=== PATIENT | female | born 1950 | race Caucasian/White ===

== ENCOUNTER 2017-02-06 16:01 | Emergency (ER) | payer MEDICARE, BC ==
[2017-02-06 16:19] VITALS: BP 137/64
--- NOTE | 2017-02-06 17:50 | UC ---
Minor Trauma HPI - HPI Summary HPI Summary: PT MISSED A STEP WHEN GOING UP THE STEPS TO HER [employer] TODAY. FELL FORWARD AND STRUCK HER UPPER LIP ON ONE STEP AND HER FOREHEAD ON THE NEXT STEP. ABRADED BOTH KNEES. NO LOC. DENIES RING, DIZZINESS OR VISUAL DISTURBANCES. HER UPPER INCISORS FEEL ACHY. - History of Current Complaint Chief Complaint: UCTrauma Stated Complaint: FALL/ HEAD INJURY Time Seen by Provider: 02/06/17 17:38 Hx Obtained From: Patient Onset/Duration: Sudden Onset, Lasting Hours, Still Present Onset Of Pain: Immediate Severity Initially: Mild Severity Currently: Mild Pain Intensity: 3 Pain Scale Used: 0-10 Numeric Mechanism Of Injury: Fall From A Standing Position Aggravating Factor(s): Nothing Alleviating Factor(s): Nothing Associated Signs And Symptoms: Negative: Loss Of Consciousness - Allergies/Home Medications Allergies/Adverse Reactions: Allergies Allergy/AdvReac Type Severity Reaction Status Date / Time Penicillins [PCN] Allergy Unknown Verified 02/06/17 16:19 Reaction Details Sulfa Drugs Allergy Unknown Verified 02/06/17 16:19 Reaction Details Home Medications: Home Medications Areds 2 02/06/17 [History] [id number]-Myg C- [Glucosamine Chondroitin] 02/06/17 [History] PMH/Surg Hx/FS Hx/Imm Hx Cardiovascular History: Hypertension Respiratory History: Asthma - Surgical History Surgical History: None Surgery Procedure, Year, and Place: cyst removed from eye 1952;. adenoidectomy 1958. ;hernia repair 1969;. ovarian cyst removal;. d&c x3. Back - Family History Known Family History: Positive: Hypertension - Social History Alcohol Use: None Substance Use Type: None Smoking Status (MU): Never Smoked Tobacco Review of Systems Constitutional: Negative Skin: Other - ABRASIONS Respiratory: Negative Cardiovascular: Negative Gastrointestinal: Negative Neurological: Negative All Other Systems Reviewed And Are Negative: Yes Physical Exam Triage Information Reviewed: Yes Appearance: Well-Appearing, No Pain Distress, Well-Nourished Vital Signs: Initial Vital Signs Temp 98.0 F 02/06/17 16:15 Pulse 82 02/06/17 16:15 Resp 18 02/06/17 16:15 BP 137/64 02/06/17 16:15 Pulse Ox 98 02/06/17 16:15 Vital Signs Reviewed: Yes Eyes: Positive: Conjunctiva Clear ENT: Positive: Hearing grossly normal, Pharynx normal, TMs normal Dental: Positive: Other: - NO LOOSE TEETH APPRECIATED. SLIGHTLY TENDER OVER UPPER FRONTAL ALVEOLAR PLATE Neck: Positive: Supple Respiratory: Positive: No respiratory distress, No accessory muscle use Cardiovascular: Positive: Pulses Normal Abdomen Description: Positive: Soft Musculoskeletal: Positive: ROM Intact, No Edema, Other: - NO TENDERNESS OVER KNEES OR PERIORBITALLY Neurological: Positive: Alert, Other: - CN II-XII GROSSLY INTACT BILATERALLY. NEG PRONATOR DRIFT. FINGER TO NOSE INTACT BILATERALLY. HEEL TO WARE INTACT BILATERALLY. RAPID ALTERNATING MVMTS INTACT. 5/5 STRENGTH Psychological: Positive: Age Appropriate Behavior Skin: Positive: Other - SPFL ABRASIONS OVER RIGHT EYE, BILATERALY KNEES AND UPPER LIP. Negative: rashes Minor Trauma Course/Dx - Differential Dx/Diagnosis Provider Diagnoses: 1. FACIAL CONTUSION/ABRASIONS. 2. TDAP BOOSTER Discharge - Discharge Plan Condition: Stable Disposition: HOME Patient Education Materials: Acute Dental Trauma (ED), Abrasion (ED), Facial Contusion (ED) Referrals: Coleman Bello MD [Primary Care Provider] - If Needed Additional Instructions: YOUR INJURIES ALL APPEAR SUPERFICIAL AND SHOULD HEAL WITHOUT ANY PROBLEMS. BE VIGILANT FOR SIGNS OF INFECTION AND SEEK FOLLOW-UP IF YOU DEVELOP SPREADING REDNESS OF THE SKIN, PURULENT DRAINAGE, FEVER, INCREASED PAIN OR ANY OTHER CONCERNING SYMPTOMS. FOLLOW-UP WITH YOUR DENTIST TO ENSURE NO DAMAGE TO YOUR TEETH OR THE ADJACENT BONE. GO TO THE ER WITHOUT FAIL IF YOU DEVELOP UNEQUAL PUPILS, VISUAL DISTURBANCE, GAIT INSTABILITY, SPEECH DIFFICULTY, NAUSEA/VOMITING, WORSENING HEADACHE, DIZZINESS, CONFUSION, WEAKNESS OR ANY OTHER CONCERNING SYMPTOMS. TETANUS IMMUNIZATION GIVEN (TDAP): You have been given an immunization against tetanus. Please record this in your records. In general, a booster is needed only once every 10 years. The tetanus shot protects against tetanus or "lockjaw," which is a complication of certain wound infections (the tetanus shot cannot protect against the actual infection). The immunization site may become warm and red due to local reaction. If this occurs, apply warm compresses and take aspirin or ibuprofen to reduce inflammation and discomfort. Return for evaluation if the reaction becomes severe.
[2017-02-06] MEDS ORDERED: Tetan/Diph/Pertus SYR(Tdap)* 0.5 ML SYR(BOOSTRIX) use SYR IM ONE (18:04)
== END 2017-02-06 18:29 | disposition home or self-care (01) ==
LOC: UCEAST 16:01
DX: S00.83XA Contusion of other part of head, initial encounter (principal); S00.81XA Abrasion of other part of head, initial encounter; Z23 Encounter for immunization; W10.9XXA Fall (on) (from) unspecified stairs and steps, initial encounter; I10 Essential (primary) hypertension; J45.909 Unspecified asthma, uncomplicated; Z88.0 Allergy status to penicillin; Z88.2 Allergy status to sulfonamides
CPT/HCPCS: 90715; 96372; 99212; G0463

== ENCOUNTER 2018-02-13 15:07 | Emergency (ER) | payer MEDICARE, OTHER ==
[2018-02-13 15:34] VITALS: BP 132/74
[2018-02-13] MEDS ORDERED: Rabies VIRUS VACCINE (Imovax)* 2.5 UNIT/ML 1 ML IM ONE (15:36)
--- NOTE | 2018-02-13 15:43 | UC ---
UC General HPI - HPI Summary HPI Summary: Patient complains of exposure to bat in her house over the course of 2 days. Bat was seen in the living room while they were awake. Patient slept at night in bed room with the door closed. Bat was later found in the living room and captured. Health department was contacted and declined to test bat, and stated the patient did not meet criteria for rabies exposure. Patient here at her own expense for rabies vaccination. Denies any knowledge of injury or wound, or any other symptoms. - History of Current Complaint Chief Complaint: UCGeneralIllness Stated Complaint: POSS BAT EXOSURE Time Seen by Provider: 02/13/18 15:33 Hx Obtained From: Patient Current Severity: None Pain Intensity: 0 - Allergy/Home Medications Allergies/Adverse Reactions: Allergies Allergy/AdvReac Type Severity Reaction Status Date / Time Penicillins Allergy Rash Verified 02/13/18 15:33 Sulfa (Sulfonamide Allergy Rash Verified 02/13/18 15:33 Antibiotics) Home Medications: Home Medications Ranitidine TAB (NF) [Zantac TAB (NF)] 150 mg PO BID 02/13/18 [History Confirmed 02/13/18] PMH/Surg Hx/FS Hx/Imm Hx Previously Healthy: Yes - Surgical History Surgical History: Yes Surgery Procedure, Year, and Place: cyst removed from eye 1952;. adenoidectomy 1958. ;hernia repair 1969;. ovarian cyst removal;. d&c x3. L3-5 LAMINECTOMY. L3- - Family History Known Family History: Positive: Hypertension - Social History Alcohol Use: None Substance Use Type: None Smoking Status (MU): Never Smoked Tobacco Have You Smoked in the Last Year: No Review of Systems Constitutional: Negative Skin: Negative Eyes: Negative ENT: Negative Respiratory: Negative Cardiovascular: Negative Gastrointestinal: Negative Genitourinary: Negative Motor: Negative Neurovascular: Negative Musculoskeletal: Negative Neurological: Negative Psychological: Negative Is Patient Immunocompromised?: No All Other Systems Reviewed And Are Negative: Yes Physical Exam Triage Information Reviewed: Yes Appearance: Well-Appearing Vital Signs: Initial Vital Signs Temp 96.2 F 02/13/18 15:24 Pulse 91 02/13/18 15:24 Resp 16 02/13/18 15:24 BP 132/74 02/13/18 15:24 Pulse Ox 96 02/13/18 15:24 Vital Signs Reviewed: Yes Eye Exam: Normal Neck exam: Normal Respiratory Exam: Normal Cardiovascular Exam: Normal Abdominal Exam: Normal Musculoskeletal Exam: Normal Neurological Exam: Normal Psychological Exam: Normal Skin Exam: Normal Course/Dx - Course Course Of Treatment: Patient complains of exposure to bat in her house over the course of 2 days. Bat was seen in the living room while they were awake. Patient slept at night in bed room with the door closed. Bat was later found in the living room and captured. Health department was contacted and declined to test bat, and stated the patient did not meet criteria for rabies exposure. Patient here at her own expense for rabies vaccination. Denies any knowledge of injury or wound, or any other symptoms. The 0 for rabies vaccination given here in the urgent care. Follow-up Tuesday second vaccination per health department instructions. See nurse's note - Differential Dx - Multi-Symptom Provider Diagnoses: bat exposure Discharge - Sign-Out/Discharge Documenting (check all that apply): Patient Departure - Discharge Plan Condition: Stable Disposition: HOME Patient Education Materials: Rabies Vaccine (By injection), Rabies (ED) Referrals: Jayy Driver MD [Primary Care Provider] - Additional Instructions: Follow-up on day 3 for second shot of vaccine. - Billing Disposition and Condition Condition: STABLE Disposition: Home
== END 2018-02-13 15:50 | disposition home or self-care (01) ==
LOC: UCEAST 15:07
DX: Z20.3 Contact with and (suspected) exposure to rabies (principal); Z23 Encounter for immunization; Z88.0 Allergy status to penicillin; Z88.2 Allergy status to sulfonamides
CPT/HCPCS: 90471; 99212; G0463

== ENCOUNTER 2018-02-16 14:17 | Emergency (ER) | payer MEDICARE, OTHER ==
[2018-02-16] MEDS ORDERED: Rabies VIRUS VACCINE (Imovax)* 2.5 UNIT/ML 1 ML IM ONE (14:24)
--- NOTE | 2018-02-16 14:27 | UC ---
General HPI - HPI Summary HPI Summary: 67 y/o female presents to Urgent Care requesting 2nd rabies booster. Bat found in house on 02/04/18. pt is afraid she was bit but is not sure. Bat was caught in the living room. Health center called but did not test the bat because they did not feel she met exposure criteria. Pt seen at Urgent Care 02/13/18 for first shot. This is scribe Ed Zoraida documenting for attending Dr. Shawn Milner. I, Dr. Martinez, personally performed the services described in this documentation as scribed in my presence and it is both accurate and complete. - History of Current Complaint Stated Complaint: RABIES BOOSTER Time Seen by Provider: 02/16/18 14:20 Hx Obtained From: Patient - Allergy/Home Medications Allergies/Adverse Reactions: Allergies Allergy/AdvReac Type Severity Reaction Status Date / Time Penicillins Allergy Rash Verified 02/16/18 14:27 Sulfa (Sulfonamide Allergy Rash Verified 02/16/18 14:27 Antibiotics) PMH/Surg Hx/FS Hx/Imm Hx Previously Healthy: Yes - Surgical History Surgical History: Yes Surgery Procedure, Year, and Place: cyst removed from eye 1952;. adenoidectomy 1958. ;hernia repair 1969;. ovarian cyst removal;. d&c x3. L3-5 LAMINECTOMY. L3- - Family History Known Family History: Positive: Hypertension - Social History Alcohol Use: None Substance Use Type: None Smoking Status (MU): Never Smoked Tobacco Have You Smoked in the Last Year: No Review of Systems Constitutional: Negative Skin: Negative Eyes: Negative ENT: Negative Respiratory: Negative Cardiovascular: Negative Gastrointestinal: Negative Genitourinary: Negative Motor: Negative Neurovascular: Negative Musculoskeletal: Negative Neurological: Negative Psychological: Negative All Other Systems Reviewed And Are Negative: Yes Physical Exam Triage Information Reviewed: Yes Appearance: Well-Appearing, No Pain Distress Vital Signs Reviewed: Yes ENT: Positive: Normal ENT inspection Neck: Positive: Supple, Nontender Respiratory: Positive: Lungs clear, Normal breath sounds Cardiovascular: Positive: RRR Abdomen Description: Positive: Nontender, Soft Bowel Sounds: Positive: Present Musculoskeletal: Positive: Strength Intact, ROM Intact Neurological: Positive: Alert Psychological: Positive: Age Appropriate Behavior Skin Exam: Normal Course/Dx - Differential Dx - Multi-Symptom Provider Diagnoses: DAY 3 RABIES VACCINE Discharge - Sign-Out/Discharge Documenting (check all that apply): Patient Departure - Discharge Plan Condition: Stable Disposition: HOME Patient Education Materials: Rabies Vaccine (ED) Referrals: Jayy Driver MD [Primary Care Provider] - Additional Instructions: FOLLOW UP WITH YOUR DOCTOR NEEDED. GET RECHECKED FOR ANY WORSENING OF YOUR CONDITION OR QUESTIONS OR CONCERNS. - Billing Disposition and Condition Condition: STABLE Disposition: Home
[2018-02-16 14:38] VITALS: BP 139/84
== END 2018-02-16 14:45 | disposition home or self-care (01) ==
LOC: UCEAST 14:17
DX: Z20.3 Contact with and (suspected) exposure to rabies (principal); Z23 Encounter for immunization; Z88.0 Allergy status to penicillin; Z88.2 Allergy status to sulfonamides
CPT/HCPCS: 90471; 99211; G0463

== ENCOUNTER 2023-11-17 07:30 | Observation (INO) ==
[2023-11-17] MEDS ORDERED: Naloxone 0.4 mg VIAL 0.4 mg/ml 1 ml VIAL IV PRN (08:35)
[2023-11-17] MEDS ORDERED: Ondansetron 4 mg VIAL 2 MG/ML 2 ml VIAL IV PRN ×2 (08:35→12:39)
[2023-11-17] MEDS ORDERED: NS 0.45% 1000 ml BAG 1,000 ML IV SCH (09:00)
[2023-11-17] MEDS ORDERED: ceFAZolin 2 GM in NS PREMIX 2 GM/100 ML BAG IVPB ONE (10:35)
[2023-11-17] MEDS ORDERED: Buffered Lidocaine 1% SYRIN 1 ml ONE (10:35)
[2023-11-17 10:49] LABS: Rapid COVID-19 Molecular Undetected (Undetected)
[2023-11-17] MEDS: Buffered Lidocaine 1% SYRIN 1 ml INTRADERM ONE (10:59)
[2023-11-17] MEDS: Lactated Ringers 1000 ml BAG 1,000 ML IV SCH ×2 (10:59→18:40)
[2023-11-17] MEDS ORDERED: ROPIVACAINE 5 MG/ML 30 ML BTL (0.5%) ONE ×2 (12:03→13:05)
[2023-11-17] MEDS ORDERED: fentaNYL 100 mcg/2 ml 50 MCG/ML VIAL ONE ×2 (12:03→16:21)
[2023-11-17] MEDS ORDERED: Midazolam 5 mg/5 ml VIAL 1 mg/ml 5 ml VIAL (5 mg) ONE (12:03)
[2023-11-17] MEDS ORDERED: Tranexamic Acid 1 GM/100ML BAG 2,000 MG/200 ML BAG IV ONE (12:19)
[2023-11-17] MEDS ORDERED: Morphine 2 MG/ML SYRINGE IV PRN (12:39)
[2023-11-17] MEDS ORDERED: Calcium Carb (TUMS) 500 mg CHEW TAB PO PRN (12:39)
[2023-11-17] MEDS ORDERED: Ondansetron ODT 4 mg TAB 4 MG TAB PO PRN (12:39)
[2023-11-17] MEDS ORDERED: Lactulose 30 ml UDC PO PRN (12:39)
[2023-11-17] MEDS ORDERED: Magnesium Hydroxide LIQ 30 ML UDC PO PRN (12:39)
[2023-11-17] MEDS ORDERED: Propofol 10 MG/ML 20 ML BTL ONE ×2 (13:05→14:01)
[2023-11-17] MEDS ORDERED: Lidocaine 2% PF 5 ML VIAL ONE (13:05)
[2023-11-17] MEDS ORDERED: fentaNYL 250 mcg/5 ml 50 MCG/ML 5 ml VIAL (250 MCG) ONE (13:05)
[2023-11-17] MEDS ORDERED: HYDROmorphone 0.5 MG/0.5 ML SYRINGE ONE (13:35)
[2023-11-17] MEDS: fentaNYL 100 mcg/2 ml 50 MCG/ML VIAL IV PRN (16:22)
[2023-11-17] MEDS: Acetaminophen IV 1 GM/100ML 1,000 MG/100 ML BAG IV ONE (16:58)
[2023-11-17] MEDS: ceFAZolin 2 GM in NS PREMIX 2 GM/100 ML BAG IVPB SCH ×2 (16:58→21:54)
[2023-11-17] MEDS: CMCS: FluvoxaMINE 50 mg TAB (NF) PO SCH (20:23)
[2023-11-17] MEDS: Magnesium Hydroxide LIQ 30 ML UDC PO SCH (20:23)
[2023-11-18] MEDS: Levalbuterol HFA INHALER MDI INH PRN (05:26)
[2023-11-18 06:22] LABS: Hematocrit 37.4 % (35-45); Hemoglobin 12.8 g/dL (11.5-14.3); Mean Platelet Volume 7.7 fL (7.5-11.2); Platelet Count 184 10^3/uL (150-450)
[2023-11-18 07:03] LABS: Creatinine, Serum 0.82 mg/dL (0.51-0.95); Potassium 4.1 mmol/L (3.5-5.0)
[2023-11-18] MEDS: Vitamin THERAPEUTIC TAB PO SCH (08:11)
[2023-11-18] MEDS: CMCS: FluvoxaMINE 50 mg TAB (NF) PO SCH (08:13)
[2023-11-18] MEDS ORDERED: ENALAPRIL HYDROCHLOROTHIAZIDE PO SCH (09:00)
[2023-11-18 13:36] VITALS: BP 102/52
== END 2023-11-18 17:45 | disposition home or self-care (01) ==
LOC: AA 10:02 → INTOOBSV 10:02 → SSU 18:35
PROVIDERS: ADMIT Orthopaedic Surgery Adult Reconstructive Orthopaedic Surgery; ATTEND Orthopaedic Surgery Adult Reconstructive Orthopaedic Surgery

== ENCOUNTER 2024-08-09 06:12 | Observation (INO) ==
[~2024-08-09 06:12] MED LIST: ROPIVACAINE 5 MG/ML 30 ML BTL (0.5%) ONE
[2024-08-09] MEDS ORDERED: Ondansetron 4 mg VIAL 2 MG/ML 2 ml VIAL ONE (06:51)
[2024-08-09] MEDS ORDERED: fentaNYL 100 mcg/2 ml 50 MCG/ML VIAL ONE ×4 (06:51→10:18)
[2024-08-09] MEDS ORDERED: Propofol 10 MG/ML 20 ML BTL ONE (06:51)
[2024-08-09] MEDS ORDERED: Dexamethasone IV 4 MG/ML VIAL 1 ml VIAL ONE ×2 (06:51→07:14)
[2024-08-09] MEDS ORDERED: Lidocaine 2% PF 5 ML VIAL ONE (06:51)
[2024-08-09] MEDS ORDERED: Propofol 0 MG/0 ML BTL ONE (06:51)
[2024-08-09] MEDS ORDERED: Midazolam 2 mg/2 ml VIAL 1 mg/ml 2 ml VIAL (2 mg) ONE ×2 (06:51→07:14)
[2024-08-09] MEDS ORDERED: Phenylephrine IV 10 MG/ML 1 ml VIAL ONE ×2 (06:51→06:56)
[2024-08-09] MEDS ORDERED: ceFAZolin 2 GM PREMIX 2 GM/50 ML BAG ONE (06:58)
[2024-08-09] MEDS ORDERED: Tranexamic Acid 1 GM/100ML BAG 2,000 MG/200 ML BAG IV ONE (06:59)
[2024-08-09 07:02] LABS: Rapid COVID-19 Molecular Undetected (Undetected)
[2024-08-09] MEDS ORDERED: Rocuronium 50 mg VIAL 10 mg/ml 5 ml VIAL (50 mg) ONE (07:12)
[2024-08-09] MEDS ORDERED: ROPIVACAINE 5 MG/ML 30 ML BTL (0.5%) ONE (07:15)
[2024-08-09] MEDS ORDERED: HYDROmorphone 0.5 MG/0.5 ML SYRINGE ONE (08:48)
[2024-08-09] MEDS ORDERED: Dexmedetomidine 200 mcg/2 ml 2 ml VIAL (200 mcg) ONE (09:59)
[2024-08-09] MEDS ORDERED: Lactulose 30 ml UDC PO PRN (11:14)
[2024-08-09] MEDS ORDERED: Magnesium Hydroxide LIQ 30 ML UDC PO PRN (11:14)
[2024-08-09] MEDS ORDERED: Calcium Carb (TUMS) 500 mg CHEW TAB PO PRN (11:14)
[2024-08-09] MEDS ORDERED: Ondansetron ODT 4 mg TAB 4 MG TAB PO PRN (11:14)
[2024-08-09] MEDS ORDERED: Morphine 2 MG/ML SYRINGE IV PRN (11:14)
[2024-08-09] MEDS ORDERED: Ondansetron 4 mg VIAL 2 MG/ML 2 ml VIAL IV PRN (11:14)
[2024-08-09] MEDS ORDERED: TROLAMINE SALICYL 10% TOPICAL PRN (12:55)
[2024-08-09] MEDS: Lactated Ringers 1000 ml BAG 1,000 ML IV SCH (13:52)
[2024-08-09] MEDS: ceFAZolin 2 GM PREMIX 2 GM/50 ML BAG IV SCH (16:47)
[2024-08-09] MEDS: Levalbuterol HFA INHALER MDI INH PRN (18:29)
[2024-08-09] MEDS: CMC: FluvoxaMINE 50 mg TAB (NF) PO SCH (19:42)
[2024-08-09] MEDS: Magnesium Hydroxide LIQ 30 ML UDC PO SCH (23:36)
[2024-08-10 05:39] LABS: Hematocrit 37.8 % (35-45); Hemoglobin 12.7 g/dL (11.5-14.3); Mean Platelet Volume 7.9 fL (7.5-11.2); Platelet Count 198 10^3/uL (150-450)
[2024-08-10 05:55] LABS: Calcium 9.3 mg/dL (8.6-10.3); Creatinine, Serum 0.74 mg/dL (0.51-0.95); eGFR CKD-EPI 85.4 (>60)
[2024-08-10 09:12] VITALS: BP 134/67
[2024-08-10] MEDS: Vitamin THERAPEUTIC TAB PO SCH (09:25)
[2024-08-10] MEDS: CMC: FluvoxaMINE 50 mg TAB (NF) PO SCH (09:26)
== END 2024-08-10 14:45 | disposition home or self-care (01) ==
LOC: SSU 06:12 → OR 06:12
PROVIDERS: ADMIT Orthopaedic Surgery Adult Reconstructive Orthopaedic Surgery; ATTEND Orthopaedic Surgery Adult Reconstructive Orthopaedic Surgery